=== PATIENT | female | born 1950 | race Caucasian/White ===

== ENCOUNTER 2017-03-21 09:58 | Inpatient (IN) | payer BC ==
[~2017-03-21 09:58] MED LIST: CEFAZOLIN 2 GM/50 ML (PMX) 50 ML (FOR WT < 120 KG) IVPB; LIDOCAINE 2% (SDV) 5 ML INJ; TRANEXAMIC ACID 1,000 MG in D5W 100 ML AT CLOSURE X1 IVPB; TRANEXAMIC ACID 1,000 MG in D5W 100 ML AT INCISION X1 IVPB
[2017-03-21] MEDS ORDERED: [UNRECOGNIZED DRUG - REMARK] IRR (10:30)
[2017-03-21] MEDS ORDERED: FENTAnyl 50 MCG/ML VIAL (13:01)
[2017-03-21] MEDS ORDERED: MIDAZOLAM 1 MG/ML 2 ML INJ (13:01)
[2017-03-21] MEDS ORDERED: DEXAMETHASONE 4 MG/ML 1 ML INJ ×2 (13:24→14:50)
[2017-03-21] MEDS ORDERED: POLYMYXIN B 500000 UNIT INJ (13:35)
[2017-03-21] MEDS ORDERED: POLYMYXIN/BACITRACIN 1L IRRIG (13:35)
[2017-03-21] MEDS ORDERED: SODIUM CL BACTERIOSTATIC 30 ML INJ (13:36)
[2017-03-21] MEDS ORDERED: PROPOFOL 100 ML (14:50)
[2017-03-21] MEDS ORDERED: ONDANSETRON 4 MG INJ (14:50)
[2017-03-21] MEDS ORDERED: ROCURONIUM 50 MG INJ (14:50)
[2017-03-21] MEDS ORDERED: CEFAZOLIN 1 GM INJ (14:50)
[2017-03-21] MEDS ORDERED: ROPIVACAINE 0.5 % 30 ML VIAL (14:50)
[2017-03-21] MEDS ORDERED: DIPHENHYDRAMINE 50 MG INJ IV ×2 (15:30→16:00)
[2017-03-21] MEDS ORDERED: CEFAZOLIN 1 GM/50 ML (PMX) 50 ML IVPB (15:30)
[2017-03-21] MEDS: ONDANSETRON 4 MG INJ IV ×3 (15:30→21:30)
[2017-03-21] MEDS ORDERED: BETHANECHOL 25 MG TAB PO (15:30)
[2017-03-21] MEDS ORDERED: BISACODYL 10 MG SUPP PR (15:30)
[2017-03-21] MEDS ORDERED: NA PHOSPHATE/BIPHOS 133 ML ENEMA PR (15:30)
[2017-03-21] MEDS ORDERED: MAGNESIUM HYDROXIDE 30ML CUP PO (15:30)
[2017-03-21] MEDS ORDERED: SENNA/DOCUSATE NA (8.6MG/50MG) TAB PO (15:30)
[2017-03-21] MEDS ORDERED: oxyCODONE 5 MG TAB PO (15:30)
[2017-03-21] MEDS ORDERED: ZOLPIDEM 5 MG TAB PO (15:30)
[2017-03-21] MEDS ORDERED: KETOROLAC 15 MG INJ IV (15:30)
[2017-03-21] MEDS ORDERED: NALOXONE (0.4 MG/ML) INJ IV (15:30)
[2017-03-21] MEDS: ASPIRIN (EC) 325 MG TAB PO (15:52)
[2017-03-21] MEDS: DOCUSATE SODIUM 100 MG CAP PO (15:53)
[2017-03-21] MEDS ORDERED: MIDAZOLAM 1 MG/ML 2 ML INJ IV (16:00)
[2017-03-21] MEDS ORDERED: KETOROLAC 30 MG INJ IV (16:00)
[2017-03-21] MEDS ORDERED: LABETALOL HCL 20MG INJ IV (16:00)
[2017-03-21] MEDS ORDERED: FENTAnyl 50 MCG/ML VIAL IV ×3 (16:00)
[2017-03-21] MEDS ORDERED: METOCLOPRAMIDE 10 MG INJ IV (16:00)
[2017-03-21] MEDS ORDERED: MEPERIDINE 25 MG INJ IV (16:00)
[2017-03-21] MEDS ORDERED: OXYCODONE/ACETAMINOPHEN (5/325) TAB PO ×2 (16:00)
[2017-03-21] MEDS ORDERED: EPHEDrine SULFATE 50 MG/5 ML SYG IV (16:00)
[2017-03-21] MEDS ORDERED: hydrALAzine 20 MG INJ IV (16:00)
[2017-03-21] MEDS ORDERED: HYDROmorphONE (0.2 MG/ML) 10ML SYG IV ×3 (16:00)
[2017-03-21] MEDS ORDERED: ALBUTEROL 0.083% (NEB) 2.5 MG/3 ML AMP HHN (16:00)
[2017-03-21] MEDS: SOD CHLORIDE 0.9% 1,000 ML IV (17:13)
[2017-03-21] MEDS: CEFAZOLIN 1 GM/50 ML (PMX) 50 ML IVPB (20:33)
[2017-03-21] MEDS: MAGNESIUM HYDROXIDE 30ML CUP PO (20:38)
[2017-03-21] MEDS: CELECOXIB 100 MG CAP PO (21:00)
[2017-03-21] MEDS: GABAPENTIN 100 MG CAP PO (22:02)
[2017-03-22] MEDS: oxyCODONE 5 MG TAB PO ×3 (00:24→16:34)
[2017-03-22] MEDS: ONDANSETRON 4 MG INJ IV ×2 (03:30→09:30)
[2017-03-22] MEDS: SOD CHLORIDE 0.9% 1,000 ML IV ×2 (04:58→16:16)
[2017-03-22] MEDS: CEFAZOLIN 1 GM/50 ML (PMX) 50 ML IVPB ×2 (05:03→12:03)
[2017-03-22 05:51] LABS: ADD MAN DIFF? NO
[2017-03-22 05:59] LABS: BASOPHILS % 0.1 % (0.0-2.0); EOSINOPHILS % 0.1 % (0.0-7.0); HEMATOCRIT 30.1 % (37.0-47.0); HEMOGLOBIN 9.9 g/dl (12.0-16.0); LYMPHOCYTES % 9.8 % (15.0-51.0); MEAN CORPUSCULAR HEMOGLOBIN 31.3 pg (29.0-33.0); MEAN CORPUSCULAR HGB CONC 32.9 g/dl (32.0-37.0); MEAN CORPUSCULAR VOLUME 95.3 fl (82.0-101.0); MEAN PLATELET VOLUME 10.6 fl (7.4-10.4); MONOCYTE # 0.6 10^3/ul (0.3-0.9); MONOCYTES % 5.7 % (0.0-11.0); NEUTROPHIL # 8.3 10^3/ul (1.6-7.5); NEUTROPHILS % 84.1 % (39.0-77.0); PLATELET COUNT 150 10^3/UL (140-415); RED BLOOD COUNT 3.16 10^6/ul (4.20-5.40); RED CELL DISTRIBUTION WIDTH 11.9 % (11.5-14.5)
[2017-03-22 05:59] LABS: WHITE BLOOD COUNT 9.9 10^3/ul (4.8-10.8)
[2017-03-22 06:27] LABS: ANION GAP 11 (8-16); BLOOD UREA NITROGEN 11 mg/dl (7-20); CALCIUM 8.4 mg/dl (8.4-10.2); CARBON DIOXIDE 24 mmol/L (21-31); CHLORIDE 107 mmol/L (97-110); CREATININE 0.69 mg/dl (0.44-1.00); GLUCOSE 154 mg/dl (70-220); POTASSIUM 4.1 mmol/L (3.5-5.1); SODIUM 138 mmol/L (135-144)
[2017-03-22] MEDS: CELECOXIB 100 MG CAP PO (08:53)
[2017-03-22] MEDS: GABAPENTIN 100 MG CAP PO (08:53)
[2017-03-22] MEDS: FERROUS FUMARATE (SR) TAB PO (08:53)
[2017-03-22] MEDS: ASPIRIN (EC) 325 MG TAB PO (08:53)
[2017-03-22] MEDS: DOCUSATE SODIUM 100 MG CAP PO (08:54)
[2017-03-23] MEDS ORDERED: PANTOPRAZOLE (EC) 40 MG TAB PO (06:00)
== END 2017-03-22 17:10 | disposition home health service (06) | DRG 470 ==
LOC: REC 09:58 → MS1 16:50
PROVIDERS: Orthopaedic Surgery
PROC: 0SRD0J9 Replacement of Left Knee Joint with Synthetic Substitute, Cemented, Open Approach (ICD-10-PCS; principal; 2017-03-21 12:00)
DX: M17.12 Unilateral primary osteoarthritis, left knee (principal); R00.1 Bradycardia, unspecified; K21.9 Gastro-esophageal reflux disease without esophagitis; Z85.3 Personal history of malignant neoplasm of breast
CPT/HCPCS: 73560; 80048; 82962; 85025; 86850; 86900; 86901; 87081; 87086; 88304; 88311; 97110; 97116; 97162; 97530